=== PATIENT | female | born 1965 | race Caucasian/White ===

== ENCOUNTER 2019-02-16 15:50 | Emergency (ER) | payer OTHER ==
[2019-02-16 15:54] VITALS: BP_SYST 135
--- NOTE | 2019-02-16 15:55 | NUR ---
12 lead EKG done in triage and given to Dr. Castro for interpretation.
--- NOTE | 2019-02-16 16:02 | NUR ---
Patient to ER bed 03 to gown for evaluation. Side rails up.
--- NOTE | 2019-02-16 16:05 | NUR ---
Patient arrived via POV, AAOx4, and ambulatory with steady gait. Patient has c/c of mild to moderate shortness of breath, worsening today. Patient has cough, productive with green phlegm, she has had for approximately 1.5 weeks. Patient states she is having sore throat, chills, ear pain, and headaches. Patient able to speak in full sentences, but states she is feeling worse. Will continue to follow up and monitor. Patient placed on hall monitor.
--- NOTE | 2019-02-16 16:07 | NUR ---
ER at bedside examining patient.
[2019-02-16] MEDS ORDERED: KETOROLAC TROMETHAMINE 60 MG/2 ML VIAL IM ONE (16:15)
[2019-02-16] MEDS ORDERED: ASPIRIN 81 MG TAB.CHEW PO ONE (16:15)
[2019-02-16] MEDS ORDERED: PREDNISONE 20 MG TABLET PO ONE (16:15)
[2019-02-16 16:27] LABS: BASOPHILS % (AUTO) 0.8 % (0.0-2.0); EOSINOPHILS # (AUTO) 0.4 K/uL (0.0-0.4); EOSINOPHILS % (AUTO) 7.3 % (0.0-4.0); HEMATOCRIT 40.2 % (36-48); HEMOGLOBIN 13.6 g/dL (12.0-16.0); LYMPHOCYTES # (AUTO) 1.1 K/uL (1.0-5.5); LYMPHOCYTES % (AUTO) 21.6 % (20.5-51.5); MEAN CORPUSCULAR HEMOGLOBIN 31 pg (27-31); MEAN CORPUSCULAR HGB CONC 34 % (32-36); MEAN CORPUSCULAR VOLUME 91 fL (79.0-98.0); MONOCYTES # (AUTO) 0.6 K/uL (0.0-1.0); MONOCYTES % (AUTO) 11.6 % (1.7-9.3); NEUTROPHILS # (AUTO) 2.9 K/uL (1.8-7.7); NEUTROPHILS % (AUTO) 58.7 % (40.0-70.0); PLATELET COUNT (AUTO) 162 K/uL (130-430); RED CELL DISTRIBUTION WIDTH 12.8 % (9.0-15.0)
[2019-02-16 16:47] LABS: CALCIUM 8.6 mg/dL (8.4-11.0); CREATININE 1.07 mg/dL (0.55-1.30); POTASSIUM 3.3 mmol/L (3.5-5.1)
[2019-02-16 16:51] LABS: ALBUMIN 3.6 g/dL (3.4-4.8); TOTAL BILIRUBIN 0.5 mg/dL (0.0-1.0)
[2019-02-16 17:55] VITALS: BP_SYST 132
--- NOTE | 2019-02-16 17:55 | NUR ---
Patient given written and verbal discharge instructions and verbalizes understanding. ER MD discussed with patient the results and treatment provided. Patient in stable condition. ID arm band removed. Rx of Prednisone, Azithromycin, Promethazine with codiene, and Albuterol given. Patient educated on pain management and to follow up with PMD. Pain Scale 0/10. Opportunity for questions provided and answered. Medication side effect fact sheet provided.
== END 2019-02-16 17:55 | disposition home or self-care (01) ==
LOC: SED 15:50
DX: J40 Bronchitis, not specified as acute or chronic (principal); I10 Essential (primary) hypertension
CPT/HCPCS: 36415; 71045; 80053; 82550; 83880; 84484; 85025; 85379; 93005; 96372; 99284; J1885; J7512

== ENCOUNTER 2019-12-23 23:40 | Emergency (ER) | payer OTHER ==
[~2019-12-23] VITALS: Ht 154.9 cm; Wt 97.5 kg
[2019-12-24] VITALS: BP_SYST 138
--- NOTE | 2019-12-24 | NUR ---
Patient ambulatory to bed 6 for evaluation
--- NOTE | 2019-12-24 00:08 | NUR ---
ER at bedside examining patient.
[2019-12-24] MEDS ORDERED: HYDR12.55 PO (00:11)
--- NOTE | 2019-12-24 00:12 | NUR ---
Pt presents to the ER c/o R arm pain and redness x 1 day. Pt states possible bug bite from backyard yesterday. Pt has b/l arm redness and hot to touch, rates pain 7/10. Denies fever, chills, cp, n/v.
[2019-12-24] MEDS ORDERED: IBUPROFEN 600 MG TABLET PO ONE (00:15)
[2019-12-24] MEDS ORDERED: cefTRIAXone 1 GM IVPB PREMIX 50 ML IV ONE (00:15)
[2019-12-24] MEDS ORDERED: methylPREDNISolone SOD SUCC/PF 62.5 MG/ML VIAL IVP ONE (00:15)
[2019-12-24] MEDS ORDERED: DIPHENHYDRAMINE INJ 50 MG/ML VIAL IVP ONE (00:15)
[2019-12-24] MEDS ORDERED: FAMOTIDINE PF 20 MG/2 ML VIAL IVP ONE (00:15)
[2019-12-24] MEDS ORDERED: NACL 0.9% 1,000 ML IV ONE (00:15)
[2019-12-24 01:08] LABS: BASOPHILS # (AUTO) 0.1 K/uL (0.0-0.2); EOSINOPHILS # (AUTO) 0.3 K/uL (0.0-0.4); EOSINOPHILS % (AUTO) 3.5 % (0.0-4.0); HEMATOCRIT 40.1 % (36-48); HEMOGLOBIN 13.4 g/dL (12.0-16.0); LYMPHOCYTES % (AUTO) 12.6 % (20.5-51.5); MEAN CORPUSCULAR HEMOGLOBIN 31 pg (27-31); MEAN CORPUSCULAR HGB CONC 33 % (32-36); MEAN CORPUSCULAR VOLUME 92 fL (79.0-98.0); MONOCYTES # (AUTO) 0.4 K/uL (0.0-1.0); MONOCYTES % (AUTO) 5.3 % (1.7-9.3); NEUTROPHILS # (AUTO) 6.1 K/uL (1.8-7.7); NEUTROPHILS % (AUTO) 77.6 % (40.0-70.0); PLATELET COUNT (AUTO) 100 K/uL (130-430); RED BLOOD CELL COUNT(AUTO) 4.38 MIL/uL (4.2-6.2); WHITE BLOOD COUNT (AUTO) 7.8 K/uL (4.8-10.8)
[2019-12-24 01:21] LABS: ALBUMIN 3.8 g/dL (3.4-4.8); C-REACTIVE PROTEIN QUANT 1.2 mg/dL (0-0.5); CALCIUM 8.6 mg/dL (8.4-11.0); CREATININE 1.01 mg/dL (0.55-1.30); POTASSIUM 3.1 mmol/L (3.5-5.1); TOTAL BILIRUBIN 0.4 mg/dL (0.0-1.0)
[2019-12-24] MEDS ORDERED: POTASSIUM CHLORIDE 20 MEQ TAB.PRT.SR PO ONE ×2 (01:45→02:45)
[2019-12-24 01:49] LABS: BILIRUBIN,URINE NEGATIVE (NEGATIVE); BLOOD, URINE NEGATIVE (NEGATIVE); CLARITY/URINE CLEAR (CLEAR); COLOR,URINE YELLOW (YELLOW); GLUCOSE,URINE NEGATIVE (NEGATIVE); KETONES,URINE NEGATIVE (NEGATIVE); LEUKOCYTE ESTERASE ,URINE NEGATIVE (NEGATIVE); NITRITE, URINE NEGATIVE (NEGATIVE); PROTEIN URINE NEGATIVE (NEGATIVE); UROBILINOGEN,URINE 0.2 (0.2-1.0)
[2019-12-24 02:12] LABS: ERYTHROCYTE SEDIMENTATION RATE 9 MM/HR (0-20)
[2019-12-24] MEDS ORDERED: MORPHINE 2 MG/ML INJ. SYRINGE IVP ONE (02:15)
[2019-12-24 03:14] VITALS: BP_SYST 126
--- NOTE | 2019-12-24 03:14 | NUR ---
Patient given written and verbal discharge instructions and verbalizes understanding. ER MD discussed with patient the results and treatment provided. Patient in stable condition. ID arm band removed. IV catheter removed intact and dressing applied, no active bleeding. Rx of NORCO, BACTRIM, PREDNISONE, POTASSIUM 10 MEQ given. Patient educated on pain management and to follow up with PMD. Pain Scale 5/10. Opportunity for questions provided and answered. Medication side effect fact sheet provided.
== END 2019-12-24 03:14 | disposition home or self-care (01) ==
LOC: SED 23:40
DX: L03.113 Cellulitis of right upper limb (principal); I10 Essential (primary) hypertension
CPT/HCPCS: 36415; 80053; 81003; 83605; 85025; 85651; 86140; 87040; 96365; 96375; 99284; J0696; J1200; J2270; J2930; J3490

== ENCOUNTER 2020-10-11 16:32 | Emergency (ER) | payer OTHER ==
[~2020-10-11] VITALS: Ht 154.9 cm; Wt 81.6 kg
[~2020-10-11 16:32] MED LIST: HYDR12.55 PO
[2020-10-11 16:46] VITALS: BP_SYST 178
[2020-10-11] MEDS ORDERED: LORazepam 1 MG TABLET PO ONE (17:30)
--- NOTE | 2020-10-11 17:40 | NUR ---
UPDATE TO FAMILY. PHONE PROVIDED, NO CONCERNS. FAMILY TO BREWER HELPER IF NEEDED
[2020-10-11 17:42] LABS: BASOPHILS # (AUTO) 0.2 K/uL (0.0-0.2); BASOPHILS % (AUTO) 3.2 % (0.0-2.0); EOSINOPHILS # (AUTO) 0.2 K/uL (0.0-0.4); HEMATOCRIT 39.7 % (36-48); HEMOGLOBIN 13.2 g/dL (12.0-16.0); LYMPHOCYTES # (AUTO) 0.7 K/uL (1.0-5.5); LYMPHOCYTES % (AUTO) 9.9 % (20.5-51.5); MEAN CORPUSCULAR HEMOGLOBIN 31 pg (27-31); MEAN CORPUSCULAR HGB CONC 33 % (32-36); MEAN CORPUSCULAR VOLUME 93 fL (79.0-98.0); MONOCYTES # (AUTO) 0.4 K/uL (0.0-1.0); MONOCYTES % (AUTO) 5.2 % (1.7-9.3); NEUTROPHILS # (AUTO) 5.4 K/uL (1.8-7.7); NEUTROPHILS % (AUTO) 78.7 % (40.0-70.0); PLATELET COUNT (AUTO) 167 K/uL (130-430); RED BLOOD CELL COUNT(AUTO) 4.27 MIL/uL (4.2-6.2); RED CELL DISTRIBUTION WIDTH 13.6 % (9.0-15.0); WHITE BLOOD COUNT (AUTO) 6.9 K/uL (4.8-10.8)
[2020-10-11 17:54] LABS: ANION GAP 13 (5-15); CHLORIDE 104 mmol/L (98-107); CREATININE 0.78 mg/dL (0.55-1.30); GLUCOSE 110 mg/dL (70-99); POTASSIUM 3.5 mmol/L (3.5-5.1); SODIUM SERUM 143 mmol/L (136-145); UREA NITROGEN, BLOOD 29 mg/dL (8-21)
[2020-10-11 18:00] LABS: ALANINE AMINOTRANSFERASE 48 U/L (12-78); ALBUMIN 3.9 g/dL (3.4-4.8); ASPARTATE AMINOTRANSFERASE 29 U/L (10-37); TOTAL BILIRUBIN 0.4 mg/dL (0.0-1.0)
--- NOTE | 2020-10-11 18:00 | NUR ---
RESTING EASY, STATED FEELING BETTER, NO DISTRESS
[2020-10-11 18:20] LABS: GFR AFRICAN AMERICAN 99 mL/min (>90)
[2020-10-11 18:22] LABS: ACETAMINOPHEN < 1 ug/mL (1-30); CHOLESTEROL 180 mg/dL (<200); HDL CHOLESTEROL 78 mg/dL (>55); LDL CHOLESTEROL 84 mg/dL (<100); TRIGLYCERIDES 89 mg/dL (30-150)
[2020-10-11 18:23] LABS: ALCOHOL, BLOOD < 3 mg/dL (<10)
--- NOTE | 2020-10-11 18:33 | NUR ---
UP AMBULATING TO BATHROOM, STEADY GAIT
[2020-10-11 20:08] LABS: BILIRUBIN,URINE NEGATIVE (NEGATIVE); BLOOD, URINE NEGATIVE (NEGATIVE); COLOR,URINE YELLOW (YELLOW); GLUCOSE,URINE NEGATIVE (NEGATIVE); KETONES,URINE NEGATIVE (NEGATIVE); LEUKOCYTE ESTERASE ,URINE NEGATIVE (NEGATIVE); NITRITE, URINE NEGATIVE (NEGATIVE); PROTEIN URINE NEGATIVE (NEGATIVE); UROBILINOGEN,URINE 0.2 (0.2-1.0)
[2020-10-11 20:22] LABS: CLARITY/URINE SLIGHTLY HAZY (CLEAR)
--- NOTE | 2020-10-11 20:45 | NUR ---
ALERT, CALM, RESP UNLABORED, SKIN WARM AND DRY. COMMUNICATES CLEARLY IN FULL COMPLETE SENTECES, LESS FREQUENT EPISODES OF CRYING OBSERVED
[2020-10-11 20:51] LABS: BARBITURATE, URINE NEGATIVE (NEG <=200); BENZODIAZEPINE, URINE NEGATIVE (NEG <=150); CANNABINOID, URINE NEGATIVE (NEG <=50); COCAINE, URINE NEGATIVE (NEG <=150); METHAMPHETAMINES SCREEN,URINE NEGATIVE (NEG <=500); OPIATE, URINE NEGATIVE (NEG <=100); PHENCYCLIDINE SCREEN,URINE NEGATIVE (NEG <=25); UR TRICYCLIC ANTIDEPRESSANTS NEGATIVE (NEG <=300); URINE AMPHETAMINE NEGATIVE (NEG <=500); URINE METHADONE NEGATIVE (NEG <=200); URINE OXYCODONE SCREEN NEGATIVE (NEG <=100); URINE PROPOXYPHENE SCREEN NEGATIVE (NEG <=300)
[2020-10-11 22:43] VITALS: BP_SYST 136
--- NOTE | 2020-10-11 22:45 | NUR ---
Patient given written and verbal discharge instructions and verbalizes understanding. ER MD discussed with patient the results and treatment provided. Patient in stable condition. ID arm band removed. Patient educated on pain management and to follow up with PMD. Pain Scale 0/10 Opportunity for questions provided and answered.
== END 2020-10-11 22:43 | disposition home or self-care (01) ==
LOC: SED 16:32
DX: F43.9 Reaction to severe stress, unspecified (principal); F41.9 Anxiety disorder, unspecified; F32.9 Major depressive disorder, single episode, unspecified; I10 Essential (primary) hypertension; Z79.899 Other long term (current) drug therapy
CPT/HCPCS: 36415; 80053; 80061; 80307; 81003; 83036; 85025; 99283; G0480; G0481; G0482

== ENCOUNTER 2021-09-26 18:40 | Emergency (ER) | payer OTHER ==
[~2021-09-26] VITALS: Ht 160 cm; Wt 102.1 kg
--- NOTE | 2021-09-26 20:20 | NUR ---
Patient to ER bed 04 to gown for evaluation.
--- NOTE | 2021-09-26 20:38 | NUR ---
PATIENT BROUGHT IN COMPLAINING OF ALLERIGIC REACTION AFTER TAKING IVERMECTIN 2 TABLETS THIS MORNING. PATIENT IS NOTED TO HAVE REDNESS AND SWELLING TO FACE AND PAIN TO RIGHT HAND. PAIN 7/10.
--- NOTE | 2021-09-26 20:40 | NUR ---
ER at bedside examining patient.
[2021-09-26] MEDS ORDERED: FAMOTIDINE 20 MG TABLET PO ONE (21:00)
[2021-09-26] MEDS ORDERED: DIPHENHYDRAMINE HCL 25 MG CAPSULE PO ONE (21:00)
[2021-09-26 21:44] LABS: BASOPHILS % (AUTO) 0.8 % (0.0-2.0); EOSINOPHILS # (AUTO) 0.2 K/uL (0.0-0.4); EOSINOPHILS % (AUTO) 4.5 % (0.0-4.0); HEMATOCRIT 40.5 % (36-48); HEMOGLOBIN 13.6 g/dL (12.0-16.0); LYMPHOCYTES # (AUTO) 1.3 K/uL (1.0-5.5); LYMPHOCYTES % (AUTO) 24.7 % (20.5-51.5); MEAN CORPUSCULAR HEMOGLOBIN 30 pg (27-31); MEAN CORPUSCULAR HGB CONC 34 % (32-36); MEAN CORPUSCULAR VOLUME 90 fL (79.0-98.0); MONOCYTES # (AUTO) 0.5 K/uL (0.0-1.0); MONOCYTES % (AUTO) 9.7 % (1.7-9.3); NEUTROPHILS # (AUTO) 3.3 K/uL (1.8-7.7); NEUTROPHILS % (AUTO) 60.3 % (40.0-70.0); PLATELET COUNT (AUTO) 165 K/uL (130-430); RED BLOOD CELL COUNT(AUTO) 4.51 MIL/uL (4.2-6.2); RED CELL DISTRIBUTION WIDTH 13.2 % (9.0-15.0); WHITE BLOOD COUNT (AUTO) 5.4 K/uL (4.8-10.8)
[2021-09-26 21:57] LABS: CREATININE 0.97 mg/dL (0.55-1.30); POTASSIUM 3.3 mmol/L (3.5-5.1)
[2021-09-26 21:59] LABS: PROTHROMBIN TIME 9.9 SECS (9.5-12.5)
[2021-09-26 22:03] LABS: ALBUMIN 3.7 g/dL (3.4-4.8); TOTAL BILIRUBIN 0.3 mg/dL (0.0-1.0)
[2021-09-26 22:15] LABS: CALCIUM 9.1 mg/dL (8.4-11.0)
[2021-09-26] MEDS ORDERED: EPINEPHRINE HCL/PF 1 MG/ML AMP ONE (23:05)
[2021-09-26] MEDS ORDERED: DIPHENHYDRAMINE INJ 50 MG/ML VIAL IVP ONE (23:15)
[2021-09-26] MEDS ORDERED: EPINEPHrine HCL 1 MG/ML VIAL IM ONE (23:15)
[2021-09-26] MEDS ORDERED: FAMOTIDINE PF 20 MG/2 ML VIAL IVP ONE (23:15)
[2021-09-26] MEDS ORDERED: methylPREDNISolone SOD SUCC/PF 62.5 MG/ML VIAL IVP ONE (23:15)
--- NOTE | 2021-09-26 23:23 | NUR ---
Dr. Doshi at bedside for dispo. Patient suddenly became short of breath and having difficulty breathing, tachycardic and tachypneic. New orders placed by md. . 20 Gauge angio placed in left hand.
[2021-09-27] MEDS ORDERED: PROCHLORPERAZINE EDISYLATE 10 MG/2 ML VIAL ONE (00:19)
[2021-09-27] MEDS ORDERED: PROCHLORPERAZINE EDISYLATE 10 MG/2 ML VIAL IVP ONE (00:45)
[2021-09-27] MEDS ORDERED: LORazepam 2 MG/ML VIAL IVP ONE (00:45)
[2021-09-27] MEDS ORDERED: OXYMETAZOLINE HCL 0.05% NASAL SPRAY NS PRN (00:45)
[2021-09-27] MEDS ORDERED: EPIN0.3P3 IM (02:02)
[2021-09-27] MEDS ORDERED: LORA10TA7 PO (02:02)
[2021-09-27] MEDS ORDERED: PRED20TA PO (02:02)
[2021-09-27 02:20] VITALS: BP_SYST 112
--- NOTE | 2021-09-27 02:20 | NUR ---
Patient and son given written and verbal discharge instructions and verbalizes understanding. ER MD discussed with patient the results and treatment provided. Patient in stable condition. ID arm band removed. IV catheter removed intact and dressing applied, no active bleeding. Rx of epi pen, claritan, and prednisone given. Patient educated on pain management and to follow up with PMD. Pain Scale 0/10 Opportunity for questions provided and answered. Medication side effect fact sheet provided.
== END 2021-09-27 02:20 | disposition home or self-care (01) ==
LOC: SED 18:40
DX: T78.2XXA Anaphylactic shock, unspecified, initial encounter (principal); B34.9 Viral infection, unspecified; I10 Essential (primary) hypertension; Z79.899 Other long term (current) drug therapy; Z20.822 Contact with and (suspected) exposure to COVID-19
CPT/HCPCS: 36415; 80053; 85025; 85610; 85730; 87426; 96372; 96374; 96375 ×2; 99291; J0171; J0780; J1200; J2060; J2930; J3490; Q0163

== ENCOUNTER 2022-11-02 01:28 | Emergency (ER) | payer OTHER ==
[~2022-11-02] VITALS: Ht 154.9 cm; Wt 104.3 kg
[~2022-11-02 01:28] MED LIST changes: +EPIN0.3P3 IM; +LORA10TA7 PO; +PRED20TA PO
[2022-11-02 01:35] VITALS: BP_SYST 149; PULSE 90; RESP 20; TEMP 98.5; O2SAT 96
[2022-11-02] MEDS ORDERED: VANCOMYCIN HCL 1,000 MG in NS 250 ML IV ONE (02:15)
[2022-11-02] MEDS ORDERED: VANCOMYCIN HCL 1000 MG/VIAL IV ONE (02:52)
[2022-11-02] MEDS ORDERED: LORazepam 2 MG/ML VIAL IVP ONE (04:30)
[2022-11-02] MEDS ORDERED: MORPHINE 4 MG INJ. 4 MG/ML VIAL IVP ONE (04:30)
[2022-11-02] MEDS ORDERED: MORPHINE 4 MG INJ. 4 MG/ML VIAL ONE (04:41)
[2022-11-02] MEDS ORDERED: SULF1TAB48 PO (04:51)
[2022-11-02] MEDS ORDERED: CHLO118L TP (04:51)
[2022-11-02 07:41] VITALS: BP_SYST 125; PULSE 74; RESP 18; TEMP 97.3; O2SAT 98
== END 2022-11-02 07:44 | disposition home or self-care (01) ==
LOC: SED 01:28
DX: L03.213 Periorbital cellulitis (principal); R21 Rash and other nonspecific skin eruption; I10 Essential (primary) hypertension; Z79.899 Other long term (current) drug therapy
CPT/HCPCS: 99284; 96365; 96375; 96366; 87040; 36415; J2060; J3370; J2270